=== PATIENT | female | born 1995 | race African-American/Black ===

== ENCOUNTER 2017-03-29 13:49 | Outpatient (CLI) | payer OTHER ==
[2017-03-29] MEDS ORDERED: ONDANSETRON (ODT) 4 MG TAB ODT (15:00)
[2017-03-29 15:20] LABS: ADD UMIC NO; UR ASCORBIC ACID NEGATIVE (NEGATIVE); UR BILIRUBIN (Dip) NEGATIVE (NEGATIVE); UR BLOOD (Dip) NEGATIVE (NEGATIVE); UR CLARITY CLEAR (CLEAR); UR COLOR YELLOW (YELLOW); UR GLUCOSE (Dip) NEGATIVE (NEGATIVE); UR KETONES (Dip) NEGATIVE (NEGATIVE); UR LEUKOCYTE ESTERASE (Dip) NEGATIVE Leu/ul (NEGATIVE); UR NITRITE (Dip) NEGATIVE (NEGATIVE); UR SPECIFIC GRAVITY (Dip) 1.015 (1.003-1.030); UR TOTAL PROTEIN (Dip) NEGATIVE (NEGATIVE); UR UROBILINOGEN (Dip) 1+ mg/dL (NEGATIVE)
[2017-03-29 15:22] LABS: ADD MAN DIFF? NO
[2017-03-29 15:23] LABS: WHITE BLOOD COUNT 6.5 10^3/ul (4.8-10.8)
[2017-03-29 15:23] LABS: BASOPHILS % 0.5 % (0.0-2.0); EOSINOPHILS # 0.1 10^3/ul (0.0-0.5); EOSINOPHILS % 0.8 % (0.0-7.0); HEMATOCRIT 30.9 % (37.0-47.0); HEMOGLOBIN 10.3 g/dl (12.0-16.0); LYMPHOCYTES # 1.8 10^3/ul (0.8-2.9); LYMPHOCYTES % 28.5 % (15.0-51.0); MEAN CORPUSCULAR HEMOGLOBIN 29.5 pg (29.0-33.0); MEAN CORPUSCULAR HGB CONC 33.3 g/dl (32.0-37.0); MEAN CORPUSCULAR VOLUME 88.5 fl (82.0-101.0); MEAN PLATELET VOLUME 12.3 fl (7.4-10.4); MONOCYTE # 0.4 10^3/ul (0.3-0.9); MONOCYTES % 5.9 % (0.0-11.0); NEUTROPHIL # 4.1 10^3/ul (1.6-7.5); NEUTROPHILS % 63.7 % (39.0-77.0); PLATELET COUNT 119 10^3/UL (140-415); RED BLOOD COUNT 3.49 10^6/ul (4.20-5.40); RED CELL DISTRIBUTION WIDTH 13.7 % (11.5-14.5)
[2017-03-29] MEDS ORDERED: ONDANSETRON 4 MG INJ IV (16:30)
[2017-03-29] MEDS ORDERED: LACTATED RINGER'S 1,000 ML IV (16:30)
[2017-03-29] MEDS: ONDANSETRON 4 MG INJ IM (16:36)
== END 2017-03-29 16:47 | disposition home or self-care (01) ==
LOC: OBT 13:49 → L-D 13:49 → OBT 16:47
DX: O62.4 Hypertonic, incoordinate, and prolonged uterine contractions (principal); O21.2 Late vomiting of pregnancy; Z3A.26 26 weeks gestation of pregnancy
CPT/HCPCS: 36415; 76817; 81003; 85025; 96372